=== PATIENT | female | born 1990 | race Caucasian/White ===

== ENCOUNTER → 2017-03-09 | Outpatient (CLI) | payer OTHER | LOC: KOH-I 08:59 | DX: O99.89 Other specified diseases and conditions complicating pregnancy, childbirth and the puerperium (principal); R16.0 Hepatomegaly, not elsewhere classified; N13.30 Unspecified hydronephrosis; K80.20 Calculus of gallbladder without cholecystitis without obstruction; Z3A.24 24 weeks gestation of pregnancy | CPT/HCPCS: 76705 ==